=== PATIENT | male | born 1975 ===

== ENCOUNTER 2017-09-24 15:06 | Emergency (ER) | payer MEDICAID ==
[2017-09-24 16:08] VITALS: BP 121/86; PULSE 109; RESP 20; O2SAT 96
[2017-09-24] MEDS ORDERED: Oxycodone/Acetaminophen 5/325 mg Tab PO STA (16:48)
--- NOTE | 2017-09-24 16:50 | C.PDOC ---
History Of Present Illness 41 y/o male presents to the ER requesting a dose of methadone. Patient reports that he went to 2 methadone clinics but he was not able to get as dose of methadone because he is from [facility]. Patient reports that he is in [place] because his fiancee was admitted for detox. Time Seen by Provider: 09/24/17 16:36 Chief Complaint (Nursing): Medical Clearance History Per: Patient History/Exam Limitations: no limitations Onset/Duration Of Symptoms: Days Current Symptoms Are (Timing): Still Present Severity: Moderate Past Medical History Reviewed: Historical Data, Nursing Documentation, Vital Signs Vital Signs: Last Vital Signs Temp 98.0 F 09/24/17 17:05 Pulse 109 H 09/24/17 16:03 Resp 20 09/24/17 17:05 BP 121/86 09/24/17 16:03 Pulse Ox 96 09/24/17 16:50 - Medical History PMH: No Chronic Diseases Surgical History: No Surg Hx Family History: States: No Known Family Hx - Social History Hx Alcohol Use: No Hx Substance Use: Yes Review Of Systems Except As Marked, All Systems Reviewed And Found Negative. Constitutional: Negative for: Fever, Chills Neurological: Negative for: Weakness, Numbness Physical Exam - Physical Exam Appears: Non-toxic, No Acute Distress, Other (comfortable) Skin: Normal Color, Warm Head: Atraumatic, Normacephalic Eye(s): bilateral: Normal Inspection, PERRL Nose: Normal Oral Mucosa: Moist Neck: Supple Chest: Symmetrical Cardiovascular: Rhythm Irregular (mildly tachycardic) Extremity: Normal ROM Neurological/Psych: Oriented x3, Normal Speech, Normal Cognition, Normal Motor, Normal Sensation Gait: Steady ED Course And Treatment O2 Sat by Pulse Oximetry: 96 (RA) Pulse Ox Interpretation: Normal Progress Note: Patient told that he cannot be given Methadone. Patient was given 2 Percocets and discharged. Disposition Counseled Patient/Family Regarding: Diagnosis, Need For Followup - Disposition Referrals: [facility] [Outside] Disposition: HOME/ ROUTINE Disposition Time: 17:00 Condition: STABLE Additional Instructions: FOLLOW UP WITH METHADONE CLINIC FOR FURTHER TREATMENT RETURN TO ER IF WORSENING SYMPTOMS DEVELOP Forms: [facility] (Indonesian), General Discharge Instructions Print Language: SWEDISH - POA Present On Arrival: None - Clinical Impression Clinical Impression: Methadone dependence - Scribe Statement The provider has reviewed the documentation as recorded by the Scribe Linda Dockery Provider Attestation: All medical record entries made by the Scooteribe were at my direction and personally dictated by me. I have reviewed the chart and agree that the record accurately reflects my personal performance of the history, physical exam, medical decision making, and the department course for this patient. I have also personally directed, reviewed, and agree with the discharge instructions and disposition.
[2017-09-24] MEDS ORDERED: Oxycodone/Acetaminophen 5/325 mg Tab ONE (16:56)
[2017-09-24 17:06] VITALS: TEMP 98
== END 2017-09-24 17:20 | disposition home or self-care (01) ==
LOC: C.ER 15:06
DX: F11.20 Opioid dependence, uncomplicated (principal)